=== PATIENT | female | born 1975 | race Caucasian/White ===

== ENCOUNTER → 2020-02-18 | Outpatient (CLI) | payer BC ==
[~2020-02-18] MED LIST: Antivert25 MG PO; IBUP600 PO
[2020-02-23 09:44] LABS: HPV 16 Negative (Negative); HPV 18 Negative (Negative); HPV OTHER HR TYPES Negative (Negative)
== END ==
LOC: LAB 17:35
PROVIDERS: Obstetrics & Gynecology
DX: Z12.4 Encounter for screening for malignant neoplasm of cervix (principal)
CPT/HCPCS: 87624; G0123

== ENCOUNTER 2020-12-08 08:33 | Day surgery (SDC) | payer BC | END 2020-12-08 23:01 | disposition home or self-care (01) | LOC: MOI MAM 08:33 | DX: D05.11 Intraductal carcinoma in situ of right breast (principal) | CPT/HCPCS: 19081; A4648 ==

== ENCOUNTER 2021-02-09 08:37 | Day surgery (SDC) | payer BC | END 2021-02-09 23:11 | disposition home or self-care (01) | LOC: MOI MAM 08:37 | DX: C50.511 Malignant neoplasm of lower-outer quadrant of right female breast (principal) | CPT/HCPCS: 19281; A4648 ==

== ENCOUNTER 2021-02-11 08:57 | Day surgery (SDC) | payer BC ==
[~2021-02-11] VITALS: Ht 160 cm; Wt 71.0 kg
--- NOTE | 2021-02-11 13:00 | NUR ---
02/11/21 1300 Gisell Coughlin METHYLENE BLUE INJECTED AT 1220 BY .
--- NOTE | 2021-02-11 18:22 | NUR ---
Discharge instructions reviewed with patient. Patient verbalizes understanding. Copy given to patient to take home. AT BEDSIDE. Discharged via wheelchair to private car for ride home WITH SPOUSE. BOTH PATEITN AND SPOUSE DENY QUESTIONS OR CONCERN
== END 2021-02-11 12:00 | disposition home or self-care (01) ==
LOC: ORSCMMR 08:57 → NM 10:00 → ORSCMMR 12:00
PROVIDERS: Surgery
PROC: 07B50ZX Excision of Right Axillary Lymphatic, Open Approach, Diagnostic (ICD-10-PCS; principal; 2021-02-11 11:00)
PROC: 0HBT0ZZ Excision of Right Breast, Open Approach (ICD-10-PCS; principal; 2021-02-11 11:00)
DX: C50.511 Malignant neoplasm of lower-outer quadrant of right female breast (principal); D36.0 Benign neoplasm of lymph nodes; M32.9 Systemic lupus erythematosus, unspecified; E05.00 Thyrotoxicosis with diffuse goiter without thyrotoxic crisis or storm
CPT/HCPCS: 38792; 88307; 88341; 88342; A9270; A9520; J0171; J0690; J1100; J1885; J2250; J2405; J2704; J3010; J7120; Q9968

== ENCOUNTER 2021-02-18 07:18 | Day surgery (SDC) | payer BC ==
[~2021-02-18] VITALS: Ht 160 cm; Wt 71.6 kg
--- NOTE | 2021-02-18 11:23 | NUR ---
Patient up to Ambulate independently. Gait steady. Discharge instructions reviewed with patient AND . Patient verbalizes understanding. Copy given to patient to take home.PT STATES PAIN MEDICAITON FROM SURGERY LAST WEEK AT HOME. MEDICATED FOR PAIN.DENIES NAUSEA. GAUZE CDI AND BREAST BINDER IN PLACE.ICE PACK GIVEN TO PT. PT WILL BE Discharged via wheelchair to private car for ride home WITH
== END 2021-02-18 11:31 | disposition home or self-care (01) ==
LOC: ORSCMMR 07:18 → ORD 08:45 → ORSCMMR 11:31
PROVIDERS: Surgery
PROC: 0HBT0ZZ Excision of Right Breast, Open Approach (ICD-10-PCS; principal; 2021-02-18 08:45)
DX: C50.911 Malignant neoplasm of unspecified site of right female breast (principal); Z17.0 Estrogen receptor positive status [ER+]; E05.00 Thyrotoxicosis with diffuse goiter without thyrotoxic crisis or storm; G60.9 Hereditary and idiopathic neuropathy, unspecified
CPT/HCPCS: 88307; A9270; J0690; J1100; J1885; J2250; J2370; J2405; J2704; J3010; J7120

== ENCOUNTER 2021-10-18 09:04 | Day surgery (SDC) | payer BC ==
[~2021-10-18] VITALS: Ht 160 cm; Wt 70.7 kg
[~2021-10-18 09:04] MED LIST changes: +Nolvadex20 MG PO
[2021-10-18] MEDS ORDERED: ASPI325 PO (09:42)
--- NOTE | 2021-10-18 10:02 | NUR ---
Ambulatory in Day Surgery History, Chart, Medications and Allergies reviewed before start of procedure.Patient confirms NPO status and agrees with scheduled surgery. Patient states colon prep results clear.Lungs clear T/O to Auscultation. Patient States Post-Procedure ride home has been arranged WITH SPOUSE
--- NOTE | 2021-10-18 11:01 | NUR ---
10/18/21 1101 Lacho Dunn HISTORY, CHART, MEDICATIONS AND ALLERGIES REVIEWED BEFORE START OF PROCEDURE. PATIENT CONFIRMS NPO STATUS AND AGREES WITH SCHEDULED PROCEDURE. 3-LEAD EKG REVIEWED WITH PHYSICIAN PRIOR TO START OF PROCEDURE. MONITOR INTACT WITH CONTINUOUS PULSE OXIMETRY,CAPNOGRAPHY, 3-LEAD EKG, INTERMITTENT BP. SUPPLEMENTAL O2 TO BE TITRATED THROUGHOUT PROCEDURE TO MAINTAIN O2 SATURATION ABOVE 90%. PATIENT DETERMINED TO BE ASA APPROPRIATE FOR PROPOFOL SEDATION PRIOR TO START OF PROCEDURE BY DR. CORMIER.
--- NOTE | 2021-10-18 11:58 | NUR ---
Discharge instructions reviewed with patient. Patient verbalizes understanding. Copy given to patient to take home. Discharged via wheelchair to private car for ride home.
== END 2021-10-18 12:20 | disposition home or self-care (01) ==
LOC: ORSCMMR 09:04
PROVIDERS: Surgery
PROC: 0DBP8ZX Excision of Rectum, Via Natural or Artificial Opening Endoscopic, Diagnostic (ICD-10-PCS; principal; 2021-10-18 10:15)
DX: Z12.11 Encounter for screening for malignant neoplasm of colon (principal); D12.8 Benign neoplasm of rectum; Z85.3 Personal history of malignant neoplasm of breast; E05.00 Thyrotoxicosis with diffuse goiter without thyrotoxic crisis or storm; M32.9 Systemic lupus erythematosus, unspecified; Z79.899 Other long term (current) drug therapy
CPT/HCPCS: 88305; J2250; J2704; J7120